=== PATIENT | female | born 1965 | race Caucasian/White ===

== ENCOUNTER 2017-06-07 15:36 | Emergency (ER) | payer OTHER ==
[~2017-06-07] VITALS: Ht 154.9 cm; Wt 50.0 kg
[2017-06-07 15:40] VITALS: Ht 154.9 cm; Wt 50.0 kg
[2017-06-07] MEDS ORDERED: SOD CHLORIDE 0.9% 1,000 ML IV STA (15:40)
[2017-06-07] MEDS ORDERED: ONDANSETRON 4 MG INJ IV STA (15:43)
[2017-06-07] MEDS ORDERED: LORAZEPAM 2 MG INJ IV ONE (16:00)
[2017-06-07] MEDS ORDERED: D-ME473S2 PO (16:04)
[2017-06-07 16:09] LABS: BASOPHILS % 0.7 % (0.0-2.0); EOSINOPHILS % 0.3 % (0.0-7.0); HEMATOCRIT 45.2 % (37.0-47.0); HEMOGLOBIN 15.1 g/dl (12.0-16.0); LYMPHOCYTES # 0.7 10^3/ul (0.8-2.9); LYMPHOCYTES % 11.3 % (15.0-51.0); MEAN CORPUSCULAR HEMOGLOBIN 34.7 pg (29.0-33.0); MEAN CORPUSCULAR HGB CONC 33.4 g/dl (32.0-37.0); MEAN CORPUSCULAR VOLUME 103.9 fl (82.0-101.0); MEAN PLATELET VOLUME 10.6 fl (7.4-10.4); MONOCYTE # 0.3 10^3/ul (0.3-0.9); MONOCYTES % 4.4 % (0.0-11.0); NEUTROPHIL # 4.9 10^3/ul (1.6-7.5); NEUTROPHILS % 83.1 % (39.0-77.0); PLATELET COUNT 189 10^3/UL (140-415); RED BLOOD COUNT 4.35 10^6/ul (4.20-5.40); RED CELL DISTRIBUTION WIDTH 14.5 % (11.5-14.5); WHITE BLOOD COUNT 5.9 10^3/ul (4.8-10.8)
[2017-06-07 16:33] LABS: ALBUMIN 4.7 g/dl (3.3-4.9); ALBUMIN/GLOBULIN RATIO 1.27; BILIRUBIN,INDIRECT 1.9 mg/dl (0-1.1); BILIRUBIN,TOTAL 1.9 mg/dl (0.2-1.3); CALCIUM 9.2 mg/dl (8.4-10.2); CREATININE 0.89 mg/dl (0.44-1.00); TOTAL PROTEIN 8.4 g/dl (6.1-8.1)
[2017-06-07 16:48] LABS: POTASSIUM 2.6 mmol/L (3.5-5.1)
[2017-06-07] MEDS ORDERED: POTASSIUM CHLORIDE (SR) 20 MEQ TAB PO STA (16:48)
[2017-06-07] MEDS ORDERED: POTASSIUM CHLORIDE 250 ML IVPB ONE (17:00)
[2017-06-07 17:04] LABS: THYROID STIMULATING HORMONE 1.68 MIU/L (0.465-4.680)
[2017-06-07 17:59] VITALS: BP 130/68; PULSE 90; RESP 20
--- NOTE | 2017-06-07 19:07 | ERD ---
ER Documentation Chief Complaint Date/Time DATE: 06/07/17 TIME: 19:04 Chief Complaint anxiety attack HPI Patient is a 51-year-old female with no medical problems who presents with spasm of her hands. She was brought in by ambulance. She had spasm of her hands and forearms bilaterally. She said that she had this in the past when she had low potassium. The symptoms started last night. She tried eating bananas today. She has no history of anxiety. She does say that she drinks alcohol frequently but has not drank for the past 2-3 days. Upon review of old medical records the patient one previous visit to the ER in 2013. Her primary doctor is Dr. Wall. ROS All systems reviewed and are negative except as per history of present illness. Medications Home Meds Reported Medications Dextromethorphan Hb-Promethazine Hcl* (Promethazine DM* Syrup) Unknown Strength Syrup, PO DAILY Y for COUGH, ML 06/07/17 Allergies Allergies: Coded Allergies: No Known Allergy (Unverified , 06/07/17) PMhx/Soc Medical and Surgical Hx: pt denies Medical Hx, pt denies Surgical Hx Hx Psychiatric Problems: Yes (anxiety) Hx Alcohol Use: Yes Hx Substance Use: No Smoking Status: Former smoker FmHx Family History: diabetes Physical Exam Vitals Vital Signs Date Time Temp Pulse Resp B/P Pulse Ox O2 Delivery O2 Flow Rate FiO2 06/07/17 17:59 90 20 130/68 99 Room Air 06/07/17 15:40 98.0 115 24 134/89 99 Physical Exam Const: Anxious Head: Atraumatic Eyes: Normal Conjunctiva ENT: Normal External Ears, Nose and Mouth. Neck: Full range of motion..~ No meningismus. Resp: Clear to auscultation bilaterally Cardio: Regular rate and rhythm, no murmurs Abd: Soft, non tender, non distended. Normal bowel sounds Skin: No petechiae or rashes Back: No midline or flank tenderness Ext: No cyanosis, or edema Neur: Awake and alert, carpal spasm bilaterally Psych: Anxious without suicidal or homicidal ideation Result Diagram: 06/07/17 1550 06/07/17 1550 Results 24 hrs Laboratory Tests Test 06/07/17 15:50 06/07/17 15:55 White Blood Count 5.910^3/ul Red Blood Count 4.3510^6/ul Hemoglobin 15.1g/dl Hematocrit 45.2% Mean Corpuscular Volume 103.9fl Mean Corpuscular Hemoglobin 34.7pg Mean Corpuscular Hemoglobin Concent 33.4g/dl Red Cell Distribution Width 14.5% Platelet Count 25260^3/UL Mean Platelet Volume 10.6fl Neutrophils % 83.1% Lymphocytes % 11.3% Monocytes % 4.4% Eosinophils % 0.3% Basophils % 0.7% Nucleated Red Blood Cells % 0.0/100WBC Neutrophils # 4.910^3/ul Lymphocytes # 0.710^3/ul Monocytes # 0.310^3/ul Eosinophils # 0.010^3/ul Basophils # 0.010^3/ul Nucleated Red Blood Cells # 0.010^3/ul Sodium Level 135mmol/L Potassium Level 2.6mmol/L Chloride Level 87mmol/L Carbon Dioxide Level 27mmol/L Anion Gap 24 Blood Urea Nitrogen 5mg/dl Creatinine 0.89mg/dl Glucose Level 219mg/dl Calcium Level 9.2mg/dl Total Bilirubin 1.9mg/dl Direct Bilirubin 0.00mg/dl Indirect Bilirubin 1.9mg/dl Aspartate Amino Transf (AST/SGOT) 278IU/L Alanine Aminotransferase (ALT/SGPT) 126IU/L Alkaline Phosphatase 206IU/L Total Protein 8.4g/dl Albumin 4.7g/dl Globulin 3.70g/dl Albumin/Globulin Ratio 1.27 Lipase 145U/L Thyroid Stimulating Hormone (TSH) 1.680MIU/L Free Thyroxine 0.98ng/dl Ionized Calcium (Measured) 1.0mmol/L Current Medications Medications (Trade) Dose Ordered Sig/Jacquelyn Route PRN Reason Start Time Stop Time Status Last Admin Dose Admin Sodium Chloride (NS) 1,000 ml @ 1,000 mls/hr Q1H STAT IV 06/07/17 15:40 06/07/17 16:39 DC 06/07/17 15:56 Lorazepam (Ativan) 1 mg ONCE ONCE IV 06/07/17 16:00 06/07/17 16:01 DC 06/07/17 15:55 Ondansetron HCl (Zofran Inj) 4 mg ONCE STAT IV 06/07/17 15:43 06/07/17 15:44 DC 06/07/17 15:55 Potassium Chloride 40 meq 40 meq ONCE STAT PO 06/07/17 16:48 06/07/17 16:51 DC 06/07/17 17:22 Potassium Chloride (KCl 40 MEQ/250 ML NS) 250 ml @ 62.5 mls/hr ONCE ONCE IVPB 06/07/17 17:00 06/07/17 17:07 DC Procedures/MDM Smoking Cessation Therapy: Pt. was lectured for greater than 3 minutes on the health risks of continued smoking and the benefits of cessation. Patient is a 51-year-old female with previous low potassium who presents with carpal spasm. The patient was found to have low potassium and was given potassium by mouth. I also ordered potassium IV but the patient does not want to stay in the hospital. I did offer and recommend admission but she is adamantly refusing. She is a reasonable outpatient management at this time and I told her that she will need to eat a healthy diet to bring her potassium back up. She can return for any worsening symptoms. The patient understands the plan and is okay for discharge at this time. I believe she was anxious and possibly having early alcohol withdrawal but she was not in delirium tremens. Departure Diagnosis: Primary Impression: Hypokalemia Additional Impression: Anxiety attack Condition: Fair Patient Instructions: Hypokalemia, Panic Attack Referrals: RANDEE WALL MD (PCP) Additional Instructions: Call your primary care doctor TOMORROW for an appointment during the next 1-2 days.See the doctor sooner or return here if your condition worsens before your appointment time. CAROLYNN JORDAN MD Jun 07, 2017 19:07
== END 2017-06-07 18:05 | disposition home or self-care (01) ==
LOC: E/R 15:36
DX: E87.6 Hypokalemia (principal); Z87.891 Personal history of nicotine dependence
CPT/HCPCS: 36415; 80053; 82330; 83690; 84439; 84443; 85025; 96374; 96375; J2060; J2405; J7030; Z7502; Z7610; J3480